=== PATIENT | female | born 1975 | race Caucasian/White ===

== ENCOUNTER 2016-09-06 14:13 | Emergency (ER) | payer OTHER ==
[~2016-09-06] VITALS: Ht 180.3 cm; Wt 56.8 kg
[2016-09-06 14:13] VITALS: BP 135/86; PULSE 69; RESP 14; O2SAT 97
[~2016-09-06 14:13] MED LIST: ALBU8.5H2 INHALATION; LEVO75TA4 PO; MS15TCR PO; ONDA4TAB6 PO; OXYB5TAB10 PO; OXYC-474 PO; OXYC1TAB24 PO; PROC25SU30 RC; VITAMINS; marijuana
[2016-09-06 14:37] LABS: BASOPHILS % (AUTO) 0.7 % (0-3); EOSINOPHILS % (AUTO) 1.2 % (0-5); MONOCYTES % (AUTO) 10.3 % (4-12); Mean Corpuscular Hemoglobin 30.3 pg (27.0-35.0); Mean Corpuscular Volume 90.6 fL (81-100); NEUTROPHILS % (AUTO) 42.5 % (40-74); Platelet Count 315 bil/L (150-400)
--- NOTE | 2016-09-06 15:07 | DRSVH ---
PROCEDURE: X-RAY CHEST, TWO VIEWS ([id number]) INDICATIONS: cough TECHNIQUE: 2 views of the chest were acquired. COMPARISON: [facility], CR, XR CHEST 2VW, 11/01/2015, 7:49. FINDINGS: Surgical changes and devices: None. Lungs and pleura: No pleural effusions or pneumothorax. Lungs are clear. Mediastinum: Mediastinal contours are normal. Heart size is normal. Bones and chest wall: No suspicious bony abnormalities. Soft tissues appear unremarkable. IMPRESSION: Relatively large lung volumes, previously the case, no source of cough is seen. Dictated by: Pedro Bills M.D. on 09/06/2016 at 15:05 Approved by: Pedro Bills M.D. on 09/06/2016 at 15:05
[2016-09-06 15:13] LABS: TROPONIN T < 0.010 ug/L (0.0-0.011)
[2016-09-06] MEDS ORDERED: 0.9% Sodium Chloride 1,000 ML IV ONE (15:31)
--- NOTE | 2016-09-06 15:31 | ED.REPORT ---
HPI-URI / Cough / Cold Date of Service Sep 06, 2016 ED Provider: Terell Flores PA-C Ludy is a 41-year-old female with a history of Marfan syndrome who presents with a chief complaint of cough. Patient previous previously seen at the urgent care and directed to the ED. She states is approximately 2 week history of cough productive of foamy sputum. She states that she has paroxysms of coughing that resulted in syncope which is happened 5 times since yesterday. Complains of rib pain which is aggravated by coughing, fever, fatigue, myalgia. She also complains of nausea and vomiting, approximately 3 times per day, over the last week. Nursing Notes Stated Complaint: SYNCOPAL EPISODES X5 Chief Complaint: Respiratory Complaints Nursing Notes Reviewed: Yes Allergies: Coded Allergies: codeine (Verified Allergy, Severe, Anaphylaxis, 05/08/16) ibuprofen (Verified Allergy, Severe, ANAPHYLAXIS, 02/11/16) nitrofurantoin (Verified Allergy, Severe, 02/11/16) Uncoded Allergies: NSAID (Allergy, Severe, 05/12/15) Scheduled ([marijuana]) DAILY Benzonatate (Benzonatate) 100 Mg Capsule 100 MG PO TID Levothyroxine (Levothyroxine) 75 Mcg Tablet 75 MCG PO DAILY Morphine Sulfate ER (MS Contin) 15 Mg Tablet.er 15 MG PO BID Oxybutynin Chloride (Oxybutynin Chloride) 5 Mg Tablet 5 MG PO TID Prednisone (PredniSONE) 20 Mg Tablet 40 MG PO DAILY Scheduled PRN Albuterol HFA (Proair HFA) 8.5 Gm Hfa.aer.ad 2 PUFFS INHALATION Q4H PRN PRN For Wheezing Albuterol Sulfate (Ventolin HFA Inhaler) 200 Puff/18 Gm Inhaler 1 PUFF INH Q4 PRN PRN For Wheezing Ondansetron (Zofran) 4 Mg Tablet 4 MG PO Q4H PRN PRN For Nausea Oxycodone (Roxicodone) 5 Mg Tablet 5 MG PO q6hr PRN PRN For Pain Prochlorperazine Maleate (Compazine Suppository) 25 Mg Supp.rect 25 MG RC Q8 PRN PRN For Nausea/Vomiting oxyCODONE-Acetaminophen 5-325 mg (oxyCODONE-Acetaminophen 5-325 mg) 1 Each Tablet 1-2 TAB PO Q6H PRN PRN For Pain Miscellaneous Medications ([Vitamins]) General Time Seen by MD: 15:15 Chief Complaint Cough, productive... Past Medical History Past Medical History Marfan syndrome Heart murmur MRSA Polycystic kidney disease and recurrent nephritis (from previous sepsis) Kidney stones Left knee joint infection Ovarian cancer Shingles Hypothyroidism gastric ulcer Past Surgical History Bone graft - multiple surgeries for Marfan's syndrome left sided chest port Thyroidectomy Hysterectomy Right oophorectomy Renal stone surg january 2016 Family History Noncontributory Smoking History Current Every Day Smoker Social History Drug Use: THC Other Social History: Good social support, , Local resident Ambulatory Status Independent Review of Systems General: Admits fever, chills, malaise. HEENT: Denies congestion, headache, sore throat. Respiratory: Admits dyspnea, cough, shortness of breath, wheezing. Cardiovascular: Denies chest pain, palpitations. Gastrointestinal: Admits vomiting, denies diarrhea, abdominal pain. Genitourinary: Denies frequency, urgency, dysuria, hematuria. Otherwise as noted in HPI. Physical Exam General: L appearing, well developed, very thin, no acute distress. Head: Atraumatic, normocephalic. Eyes: No scleral icterus or injection. No discharge. Vision grossly intact. ENT: Voice clear, hearing grossly intact. Respiratory: Regular rate and rhythm. Breath scattered rhonchi and wheezes bilaterally. Cardiovascular: Regular rate and rhythm, without murmur, gallop or rub. No pedal edema. Gastrointestinal: Abdomen flat and non-tender without guarding or rebound. Bowel sounds normoactive. Skin: Warm and dry. Neurological: Grossly nonfocal. Negative pronator drift Cranial nerves: Vision grossly intact, PERRL, EOMI. Facial motion symmetrical, sensation to light touch over forehead, maxilla and mandible present and equal B /L. Voice clear and fluent, no drooling/pooling of saliva, uvula rises midline. Psychological: Alert and oriented. Speech appropriate, linear and logical. Behavior appropriate. Initial Vital Signs Vital Signs (First) Date Time Temp Pulse Resp B/P Pulse Ox O2 Delivery O2 Flow Rate FiO2 09/06/16 14:13 36.9 69 14 135/86 97 Room Air Initial VS: Reviewed, Vital signs normal Interpretation & Diagnostics Interpretation & Diagnostics: Bilateral blood pressures within acceptable limits Orthostatic vital signs within acceptable limits. Lab Results Interpretation Result Diagram: 09/06/16 1420 09/06/16 1420 Test 09/06/16 14:20 09/06/16 16:35 White Blood Count 5.9th/mm3 (3.8-10.1) Red Blood Count 4.45mil/mm3 (3.90-5.20) Hemoglobin 13.5g/dL (12.0-15.6) Hematocrit 40.3% (35.0-46.0) Mean Corpuscular Volume 90.6fL (81-100) Mean Corpuscular Hemoglobin 30.3pg (27.0-35.0) Mean Corpuscular Hemoglobin Concent 33.5% (32.0-37.0) Red Cell Distribution Width 13.0% (12.3-15.4) Platelet Count 315bil/L (150-400) Neutrophils (%) (Auto) 42.5% (40-74) Lymphocytes (%) (Auto) 45.1% (14-46) Monocytes (%) (Auto) 10.3% (4-12) Eosinophils (%) (Auto) 1.2% (0-5) Basophils (%) (Auto) 0.7% (0-3) Sodium Level 134mEq/L (134-144) Potassium Level 3.9mEq/L (3.5-5.2) Chloride Level 95mEq/L (97-108) Carbon Dioxide Level 26mmol/L (18-29) Blood Urea Nitrogen 7mg/dL (6-24) Creatinine 0.60mg/dL (0.57-1.00) Estimat Glomerular Filtration Rate 156mL/min (>59) Glucose Level 98mg/dL (60-99) Calcium Level 9.4mg/dL (8.5-10.1) Magnesium Level 2.0mg/dL (1.6-2.6) Total Bilirubin 0.4mg/dL (0.0-1.2) Aspartate Amino Transf (AST/SGOT) 17U/L (0-50) Alanine Aminotransferase (ALT/SGPT) 7U/L (0-32) Alkaline Phosphatase 68U/L (25-150) Troponin T < 0.010ug/L (0.0-0.011) Total Protein 7.6g/dL (6.4-8.4) Albumin 4.5g/dL (3.4-5.0) Hold Griffin Top Tube Received (Received) Hold Urine Received (Received) ECG Interpretation Interpreted by: ED physician Normal ECG Interpretation: Normal rate, Normal sinus rhythm, No acute ischemic changes, Normal QRS, Normal axis, Normal intervals Re-Eval/Medical Decision Med Decision/Clinical Course Med Decision/Clinical Course: Discussed case with Dr. Reardon, normal EKG, suggest breathing treatment, albuterol for home, pain medication, Perles, bilateral DP, prednisone In brief this is a 41-year-old female with a history of Marfan syndrome presents with a chief complaint of a cough productive of foamy sputum over the last approximately 2 weeks. In the last day she has developed paroxysms of coughing that cause her to syncopize. She also complains of chest pain that is "like pleurisy." Referred from urgent care to concern that the sigmoid episodes may be related to her Marfan syndrome. Chest x-ray shows slight hyperinflation but normal mediastinum and no consolidation. EKG is normal sinus rhythm without unusual waveforms rhythms. Labs are within acceptable limits. Physical exam reveals bilateral wheezes and rhonchi. Cough is most likely a viral upper respiratory infection versus a pneumonia. Simple episodes are most likely caused by a vasovagal response coughing as opposed to CVA or aortic dissection. Patient responded well to breathing treatment, 1 L normal saline and a first dose of prednisone. He feels a little be discharged home. Provided prescription for nausea medication, albuterol MDI, prednisone, advised primary care follow-up and gave return precautions Re-Evaluation/Progress : Time of Eval: 17:27 Patient Status: Condition improved Re-Evaluation/Progress Note: Patient feels improved following DuoNeb and albuterol treatment. Lungs are clear to auscultation bilaterally. Plan to test orthostatic vital signs following completion of normal saline and discharged with albuterol inhaler, Tessalon [place] Discharge & Departure Impression: Primary Impression: Cough Disposition: Home Discharge Condition All VS Reviewed: Yes Condition: Stable Additional Instructions: Evaluation for cough in the emergency department today. Chest x-ray revealed no pneumonia or potential aneurysm related to your Marfan syndrome. EKG and labs were normal. Loss of consciousness is most likely caused by a vasovagal response to excessive coughing. Because there is no pneumonia to treat the treatment is largely symptomatic. I have written a prescription for steroids to be taken for the next 4 days. I will also write a prescription for an albuterol inhaler to help with wheezing and Tessalon Perles to help with cough. Since you are allergic to ibuprofen, treat the pain at 1000 mg of acetaminophen (Tylenol) every 6 hours. Follow up with your primary care provider if your symptoms are not resolving in a few days. Return to emergency room for any new or worsening symptoms including high fever, repeated vomiting, difficulty breathing, stroke symptoms. Referrals: [facility] ([facility] EDSupervising Provider for APC: Waqas Reardon MD, Seth PA-C Sep 06, 2016 15:31
[2016-09-06] MEDS ORDERED: Ondansetron 2 mg/mL 2 mL Inj IVPUSH ONE (15:35)
[2016-09-06] MEDS ORDERED: Albuterol-Ipratropium 3 mL Inhalation Solution NEB ONE (16:20)
[2016-09-06] MEDS ORDERED: Albuterol 2.5 mg/3 mL Inhalation Solution NEB ONE (16:20)
[2016-09-06 16:31] VITALS: BP_SYST 132; BP_SYST 134; BP_DIAS 82; BP_DIAS 93; PULSE 63; RESP 12; O2SAT 98
[2016-09-06] MEDS ORDERED: predniSONE 20 mg Tablet PO ONE (16:35)
[2016-09-06 17:36] VITALS: PULSE 60; RESP 16; O2SAT 97
[2016-09-06 17:53] VITALS: BP 104/66; PULSE 76; RESP 15; O2SAT 93
[2016-09-06 17:55] VITALS: BP 133/82; PULSE 75; RESP 14; O2SAT 95
[2016-09-06] MEDS ORDERED: BENZ100C8 PO (18:32)
[2016-09-06] MEDS ORDERED: PRE20 PO (18:32)
[2016-09-06] MEDS ORDERED: ALBU18HF INH (18:32)
== END 2016-09-06 18:38 | disposition home or self-care (01) ==
LOC: SED 14:13
DX: R05 Cough (principal); R55 Syncope and collapse; R11.2 Nausea with vomiting, unspecified; E03.9 Hypothyroidism, unspecified; Z85.43 Personal history of malignant neoplasm of ovary; F17.200 Nicotine dependence, unspecified, uncomplicated; Z88.1 Allergy status to other antibiotic agents; Z88.5 Allergy status to narcotic agent; Z88.6 Allergy status to analgesic agent
CPT/HCPCS: 36415; 71020; 80053; 81025; 83735; 84484; 85025; 93005; 96361; 96374; 96375; 96376; 99285; G0463; J2270; J2405; J7030; J7613; J7620

== ENCOUNTER 2017-01-02 10:52 | Emergency (ER) | payer OTHER ==
[~2017-01-02] VITALS: Ht 180.3 cm; Wt 60.0 kg
[~2017-01-02 10:52] MED LIST changes: +ALBU18HF INH; +BENZ100C8 PO; +PRE20 PO
[2017-01-02 11:09] VITALS: BP 120/80; PULSE 74; RESP 16; O2SAT 98
== END 2017-01-02 12:43 | disposition left against medical advice (07) ==
LOC: SED 10:52
DX: Z53.21 Procedure and treatment not carried out due to patient leaving prior to being seen by health care provider (principal)

== ENCOUNTER 2017-01-02 14:48 | Emergency (ER) | payer OTHER ==
[~2017-01-02] VITALS: Ht 180.3 cm; Wt 60.0 kg
[2017-01-02 15:05] VITALS: BP 120/80; PULSE 74; RESP 16; O2SAT 98
--- NOTE | 2017-01-02 16:19 | DRSVH ---
PROCEDURE: CT BRAIN WITHOUT CONTRAST ([id number]) INDICATIONS: HEADACHE/CONCERN FOR ANEURYSM TECHNIQUE: Noncontrast 4.5 mm thick angled axial sections acquired from the foramen magnum to the vertex, with c oronal reformats. COMPARISON: None. FINDINGS: Image quality: Excellent. CSF spaces: Basal cisterns are patent. No extra-axial fluid collections. Ventricles are normal in size and shape. Brain: No midline shift. No intracranial masses or hemorrhage. Wheat-white matter interface is norm al. Skull and face: Calvarium and visualized facial bones are intact, without suspicious lesions. Sinuses: Visualized sinuses and mastoids are clear. IMPRESSION: No acute intracranial abnormality. Dictated by: Sheila Keene M.D. on 01/02/2017 at 16:17 Approved by: Sheila Keene M.D. on 01/02/2017 at 16:18
--- NOTE | 2017-01-02 18:07 | ED.REPORT ---
HPI-Headache Date of Service January 02, 2017 ED Provider: Barry Finch DO A 41 year old female with a medical history including Marfan syndrome, polycystic kidney disease, and hypothyroidism presents to the ED with a worsening intermittent headache onset "weeks ago." The headache lasts for one second at a time and is described as severe and "blinding." The patient also reports neck stiffness. She denies other symptoms. The patient was triaged in the ED earlier today, then went to an appointment with her PCP who sent her back to the ED due to an "abnormal neurologic exam." She has had similar symptoms in the past. Nursing Notes Stated Complaint: HEADACHE Chief Complaint: Neuro Symptoms/ Deficits Nursing Notes Reviewed: Yes Allergies: Coded Allergies: codeine (Verified Allergy, Severe, Anaphylaxis, 05/08/16) ibuprofen (Verified Allergy, Severe, ANAPHYLAXIS, 02/11/16) nitrofurantoin (Verified Allergy, Severe, 02/11/16) Uncoded Allergies: NSAID (Allergy, Severe, 05/12/15) Scheduled ([marijuana]) DAILY Benzonatate (Benzonatate) 100 Mg Capsule 100 MG PO TID Levothyroxine (Levothyroxine) 75 Mcg Tablet 75 MCG PO DAILY Morphine Sulfate ER (MS Contin) 15 Mg Tablet.er 15 MG PO BID Oxybutynin Chloride (Oxybutynin Chloride) 5 Mg Tablet 5 MG PO TID Prednisone (PredniSONE) 20 Mg Tablet 40 MG PO DAILY Scheduled PRN Albuterol HFA (Proair HFA) 8.5 Gm Hfa.aer.ad 2 PUFFS INHALATION Q4H PRN PRN For Wheezing Albuterol Sulfate (Ventolin HFA Inhaler) 200 Puff/18 Gm Inhaler 1 PUFF INH Q4 PRN PRN For Wheezing Ondansetron (Zofran) 4 Mg Tablet 4 MG PO Q4H PRN PRN For Nausea Oxycodone (Roxicodone) 5 Mg Tablet 5 MG PO q6hr PRN PRN For Pain Prochlorperazine Maleate (Compazine Suppository) 25 Mg Supp.rect 25 MG RC Q8 PRN PRN For Nausea/Vomiting oxyCODONE-Acetaminophen 5-325 mg (oxyCODONE-Acetaminophen 5-325 mg) 1 Each Tablet 1-2 TAB PO Q6H PRN PRN For Pain Miscellaneous Medications ([Vitamins]) General Time Seen by MD: 18:05 Chief Complaint Headache Hx Obtained From: Patient Arrived By: Walk-in Sudden in Onset?: Yes Onset Occurred: More than a week ago... Symptom Duration: Intermittent Location: : Generalized Quality: Painful ("Blinding") Severity: Current: Moderate Severity: Maximum: Severe Pertinent Negative: Relieved by nothing Recent Healthcare: Recent doctor visit Similar Sx Previous: Yes Past Medical History Past Medical History Marfan syndrome Heart murmur MRSA Polycystic kidney disease and recurrent nephritis (from previous sepsis) Kidney stones Left knee joint infection Ovarian cancer Shingles Hypothyroidism Gastric ulcer Past Surgical History Bone graft - multiple surgeries for Marfan's syndrome left sided chest port Thyroidectomy Hysterectomy Right oophorectomy Renal stone surg january 2016 Family History Noncontributory Smoking History Current Every Day Smoker Social History Drug Use: THC Other Social History: Good social support, , Local resident Ambulatory Status Independent Review of Systems Review of Systems Note: + Neck stiffness Constitutional: Denies: Fever GI: Denies: Diarrhea, Vomiting Neurologic: Reports: Headache Complete sys rev & neg: except as marked. Respiratory: Denies: Non-productive cough, Shortness of breath Physical Exam Initial Vital Signs Vital Signs (First) Date Time Temp Pulse Resp B/P Pulse Ox O2 Delivery O2 Flow Rate FiO2 01/02/17 15:05 36.2 74 16 120/80 98 Room Air Initial VS: Reviewed Respiratory: Breath sounds normal, Clear to auscultation, No respiratory distress Cardiovascular: Regular rate & rhythm, Heart sounds normal Skin: Warm, Dry, No cyanosis Psychiatric: Mood/affect normal, Behavior normal, Normal thought content General/Constitutional: Awake, Alert Head / Eyes: Atraumatic, Normocephalic, EOMI Pupils: Positive: Anisocoria (Right 5mm, Left 4mm) Neck: Supple, Full range of motion Neurologic: Oriented X3, Speech NL, No motor deficits, No sensory deficits Interpretation & Diagnostics CT BRAIN ANGIO W/ and W/O IV CONTRAST: IMPRESSION: 1. No acute intracranial process. 2. No areas of hemodynamically significant stenosis, vascular occlusion or aneurysmal dilation within the anterior circulation. 3. No areas of hemodynamically significant stenosis, vascular occlusion or aneurysmal dilation within the posterior circulation. Dictated by: Stormy Lou M.D. on 01/02/2017 at 20:37 Lab Results Interpretation Result Diagram: 01/02/17 1835 01/02/17 1835 Test 01/02/17 18:35 01/02/17 21:52 White Blood Count 6.0th/mm3 (3.8-10.1) Red Blood Count 4.10mil/mm3 (3.90-5.20) Hemoglobin 12.4g/dL (12.0-15.6) Hematocrit 37.7% (35.0-46.0) Mean Corpuscular Volume 92.0fL (81-100) Mean Corpuscular Hemoglobin 30.2pg (27.0-35.0) Mean Corpuscular Hemoglobin Concent 32.9% (32.0-37.0) Red Cell Distribution Width 13.1% (12.3-15.4) Platelet Count 316bil/L (150-400) Neutrophils (%) (Auto) 50.7% (40-74) Lymphocytes (%) (Auto) 39.2% (14-46) Monocytes (%) (Auto) 8.4% (4-12) Eosinophils (%) (Auto) 0.8% (0-5) Basophils (%) (Auto) 0.7% (0-3) Sodium Level 140mEq/L (134-144) Potassium Level 3.5mEq/L (3.5-5.2) Chloride Level 100mEq/L (97-108) Carbon Dioxide Level 25mmol/L (18-29) Blood Urea Nitrogen 7mg/dL (6-24) Creatinine 0.65mg/dL (0.57-1.00) Estimat Glomerular Filtration Rate 143mL/min (>59) Glucose Level 117mg/dL (60-99) Calcium Level 9.6mg/dL (8.5-10.1) Total Bilirubin 0.6mg/dL (0.0-1.2) Aspartate Amino Transf (AST/SGOT) 15U/L (0-50) Alanine Aminotransferase (ALT/SGPT) 7U/L (0-32) Alkaline Phosphatase 66U/L (25-150) Total Protein 7.3g/dL (6.4-8.4) Albumin 4.6g/dL (3.4-5.0) Hold Griffin Top Tube Received (Received) CSF Appearance Clear (CLEAR) CSF Color Colorless (COLORLESS) CSF WBC 0/mm3 (0-5) CSF RBC 0/mm3 CSF Mononuclear WBCs % CSF Polynuclear WBCs % CSF Other Cells CSF Glucose 65mg/dL (45-90) CSF Total Protein 30mg/dL (15-45) CT Head Interpretation IMPRESSION: No acute intracranial abnormality. Dictated by: Sheila Keene M.D. on 01/02/2017 at 16:17 Study: Head CT no contrast Interpretation / Wet Read by: Interpret - Radiologist Procedures Lumbar Puncture Time: 21:22 Procedure Performed by: ED physician Consent / Setup / Site Prep: Informed consent provided, Consent from patient , Time-out performed, Hand hygiene observed, Stand sterile technique, Sterile drapes applied, Patient left lateral Skin Preparation Agent: Betadine Local Anesthesia: Lidocaine 1% Procedural Sedation/Analgesia: Analgesia: Fentanyl LP Needle Gauge: 22 Inserted Needle at: L3 L4 Post-Procedure / Complications: Dressing applied, No complications, Tolerated procedure well, Patient stable Re-Eval/Medical Decision Re-Evaluation/Progress #1: Time of Eval: 20:49 )( Patient Status: Condition improved Re-Evaluation/Progress Note: Patient's pain has improved with medication. Discussed with patient CT results and plan for LP. She agrees with plan for care and all questions were addressed. Re-Evaluation/Progress #2: Time of Eval: 21:22 )( Patient Status: Condition improved Re-Evaluation/Progress Note: LP performed. Re-Evaluation/Progress #3: Time of Eval: 22:40 )( Patient Status: Condition improved Re-Evaluation/Progress Note: Discussed with patient CT, lab, and LP results, diagnosis, and plan for discharge. Follow-up and return to the ER instructions given. Patient agrees with plan for care and all questions were addressed. Counseled Regarding: Diagnosis, Lab results, Need for follow-up, When/why to return to ED Discharge & Departure Shift Change Sign-Out Response to Therapy: Improved Impression: Primary Impression: Headache Headache type: unspecified Headache chronicity pattern: acute headache Intractability: not intractable Qualified Code: R51 - Headache Disposition: Home Discharge Condition All VS Reviewed: Yes Condition: Improved Patient Instructions: Acute Headache (GEN) Additional Instructions: Thank you for entrusting us with your care. Your exam today was reassuring. Your head CT and lumbar puncture were normal. Your lab results were unremarkable. Please take Imitrex one every eight hours with Benadryl at the onset of your next headache. 1-2 Percocet every six hours as needed for pain related to the lumbar puncture. Do not drink alcohol, drive, or consume acetaminophen while taking Percocet. Call your primary care provider tomorrow for a follow-up appointment. Return to the ER with any new or worsening symptoms. Referrals: Logan Najera DO (PCP) [facility] Attestation Portions of this note were transcribed by Margarita Lucio. I, Dr. Finch, personally performed the history, physical exam, and medical decision-making; I reviewed and confirmed the accuracy of the information in the transcribed note. Signed by: Melina Kelly, 01/03/2017, 00:55 copies to: Logan Najera Todd P DO January 02, 2017 18:06 MARGARITA LUCIO January 02, 2017 18:13
[2017-01-02 18:45] LABS: BASOPHILS % (AUTO) 0.7 % (0-3); EOSINOPHILS % (AUTO) 0.8 % (0-5); MONOCYTES % (AUTO) 8.4 % (4-12); Mean Corpuscular Hemoglobin 30.2 pg (27.0-35.0); NEUTROPHILS % (AUTO) 50.7 % (40-74); Platelet Count 316 bil/L (150-400)
--- NOTE | 2017-01-02 20:42 | DRSVH ---
PROCEDURE: CT ANGIOGRAPHY OF THE BRAIN WITH AND WITHOUT CONTRAST ([id number]) INDICATIONS: marfans, severe headache, TECHNIQUE: Precontrast 4.5 mm thick angled axial sections acquired from the foramen magnum to the vertex. Afte r the administration of intravenous contrast, 1 mm thick sections acquired through the [place] of [place] is. Postcontrast 4.5 mm thick sections then re-acquired from the foramen magnum to the vertex. 3-di mensional otqpieg-gwhckdotf-zqryczssgi (MIP) and/or volume rendering reformats were acquired of the c entral intracranial vasculature. For radiation dose reduction, the following was used: automated ex posure control, adjustment of mA and/or kV according to patient size. COMPARISON: [facility], CT, CT BRAIN WO CON, 01/02/2017, 15:58. FINDINGS: Image quality: Excellent. The ventricular system and cortical sulci are normal in size and appearance for the patient's stated age. There is no acute intra-or extra axial fluid collection. No acute hemorrhage, mass lesion or mid line shift. Brainstem is unremarkable. Globes are symmetrical. Sinuses are aerated. Osseous structure s are intact. The posterior circulation demonstrates a left vertebral artery dominance. Basilar artery and posterio r cerebral arteries demonstrate no areas of hemodynamically significant stenosis, vascular occlusion or aneurysmal dilation. Posterior communicating arteries are within normal limits. The anterior circulation, including the anterior and middle cerebral arteries, as well as internal ca rotid arteries demonstrates no areas of hemodynamically significant stenosis, vascular occlusion or a neurysmal dilation. IMPRESSION: 1. No acute intracranial process. 2. No areas of hemodynamically significant stenosis, vascular occlusion or aneurysmal dilation within the anterior circulation. 3. No areas of hemodynamically significant stenosis, vascular occlusion or aneurysmal dilation within the posterior circulation. Dictated by: Stormy Lou M.D. on 01/02/2017 at 20:37 Approved by: Stormy Lou M.D. on 01/02/2017 at 20:41
[2017-01-02] MEDS ORDERED: fentaNYL-PF 50 mCg/mL 2 mL Inj IVPUSH ONE (20:50)
[2017-01-02] MEDS ORDERED: HYDROmorphone 0.5 mg/0.5 mL iSecure Syringe IVPUSH ONE (21:45)
[2017-01-02 22:16] LABS: APPEARANCE,CSF CLEAR (CLEAR); COLOR,CSF COLORLESS (COLORLESS); WHITE BLOOD CELL,CSF 0 /mm3 (0-5)
[2017-01-02] MEDS ORDERED: _oxyCODONE/APAP 5-325 mg Tablet PO PRN (22:55)
[2017-01-02 23:01] VITALS: BP 96/65; PULSE 72; O2SAT 98
== END 2017-01-02 23:29 | disposition home or self-care (01) ==
LOC: SED 14:48
DX: R51 Headache (principal); M25.60 Stiffness of unspecified joint, not elsewhere classified; Q87.40 Marfan syndrome, unspecified; Q61.3 Polycystic kidney, unspecified; E03.9 Hypothyroidism, unspecified; F17.200 Nicotine dependence, unspecified, uncomplicated; Z87.442 Personal history of urinary calculi; Z88.5 Allergy status to narcotic agent; Z88.6 Allergy status to analgesic agent; Z88.1 Allergy status to other antibiotic agents
CPT/HCPCS: 36415; 62270; 70450; 70496; 80053; 82945; 84155; 85025; 87070; 87205; 89051; 96374; 96375; 99285; J1170; J1200; J2060; J3010; Q9967

== ENCOUNTER 2017-01-04 12:58 | Emergency (ER) | payer OTHER ==
[~2017-01-04] VITALS: Ht 180.3 cm; Wt 59.1 kg
[2017-01-04] MEDS ORDERED: fentaNYL-PF 50 mCg/mL 2 mL Inj ONE (12:59)
[2017-01-04 13:44] VITALS: BP 123/76; PULSE 70; RESP 16; O2SAT 99
[2017-01-04] MEDS ORDERED: Ondansetron 8 mg ODT Tablet ONE (15:01)
[2017-01-04] MEDS ORDERED: 0.9% Sodium Chloride 1,000 ML IV ONE (16:08)
[2017-01-04] MEDS ORDERED: Acetaminophen IV 1,000 MG in IV Premix 1 EACH IV ONE (16:10)
[2017-01-04] MEDS ORDERED: MetoCLOpramide 5 mg/mL 2 mL Inj IVPUSH ONE (16:10)
--- NOTE | 2017-01-04 16:16 | ED.REPORT ---
HPI-Headache Date of Service January 04, 2017 ED Provider: Terell Flores PA-C Ludy is a 41-year-old female with a history of Marfan syndrome presented with a chief complaint of headache. Patient reports a several week history of brief sudden headaches lasting 1-2 minutes associated with vision changes such as double vision. She was seen in this department 2 days ago and evaluated with CT and spinal tap, which were both reassuring. Patient states that her headache has changed since then. The headache is now global and constant, but aggravated by standing up and moving around. Associated with nausea, dizziness , hearing changes "like I am underwater." Denies fever, chills. Nursing Notes Stated Complaint: BAD HEADACHE POST SPINAL TAP Chief Complaint: Headache Nursing Notes Reviewed: Yes Allergies: Coded Allergies: codeine (Verified Allergy, Severe, Anaphylaxis, 01/04/17) ibuprofen (Verified Allergy, Severe, ANAPHYLAXIS, 01/04/17) nitrofurantoin (Verified Allergy, Severe, 01/04/17) Uncoded Allergies: NSAID (Allergy, Severe, 05/12/15) Scheduled ([marijuana]) DAILY Benzonatate (Benzonatate) 100 Mg Capsule 100 MG PO TID Levothyroxine (Levothyroxine) 75 Mcg Tablet 75 MCG PO DAILY Morphine Sulfate ER (MS Contin) 15 Mg Tablet.er 15 MG PO BID Oxybutynin Chloride (Oxybutynin Chloride) 5 Mg Tablet 5 MG PO TID Prednisone (PredniSONE) 20 Mg Tablet 40 MG PO DAILY Scheduled PRN Albuterol HFA (Proair HFA) 8.5 Gm Hfa.aer.ad 2 PUFFS INHALATION Q4H PRN PRN For Wheezing Albuterol Sulfate (Ventolin HFA Inhaler) 200 Puff/18 Gm Inhaler 1 PUFF INH Q4 PRN PRN For Wheezing Hydrocodone-Acetaminophen 5-325 mg (Hydrocodone-Acetaminophen 5-325 mg) 1 Each Tablet 1 TABLET PO Q4H PRN PRN For Pain Ondansetron (Zofran) 4 Mg Tablet 4 MG PO Q4H PRN PRN For Nausea Oxycodone (Roxicodone) 5 Mg Tablet 5 MG PO q6hr PRN PRN For Pain Prochlorperazine Maleate (Compazine Suppository) 25 Mg Supp.rect 25 MG RC Q8 PRN PRN For Nausea/Vomiting oxyCODONE-Acetaminophen 5-325 mg (oxyCODONE-Acetaminophen 5-325 mg) 1 Each Tablet 1-2 TAB PO Q6H PRN PRN For Pain Miscellaneous Medications ([Vitamins]) General Time Seen by MD: 15:49 Chief Complaint Headache Sudden in Onset?: No Past Medical History Past Medical History Marfan syndrome Heart murmur MRSA Polycystic kidney disease and recurrent nephritis (from previous sepsis) Kidney stones Left knee joint infection Ovarian cancer Shingles Hypothyroidism Gastric ulcer Past Surgical History Bone graft - multiple surgeries for Marfan's syndrome left sided chest port Thyroidectomy Hysterectomy Right oophorectomy Renal stone surg january 2016 Family History Noncontributory Smoking History Current Every Day Smoker Social History Drug Use: THC Other Social History: Good social support, , Local resident Ambulatory Status Independent Review of Systems Review of Systems Note: Negative unless stated otherwise in history of present illness Physical Exam General: Well appearing, well developed, well nourished, moderate distress. Lying on the gurney in a darkened room. Head: Atraumatic, normocephalic. Eyes: No scleral icterus or injection. No discharge. Vision grossly intact. ENT: Voice clear, hearing grossly intact. Respiratory: Regular rate and rhythm. Breath sounds present, clear to auscultation and equal bilaterally. No respiratory distress. No increased work of breathing, speaks in complete sentences. Cardiovascular: Regular rate and rhythm, without murmur, gallop or rub. No pedal edema. Gastrointestinal: Abdomen flat and non-tender without guarding or rebound. Bowel sounds normoactive. Skin: Warm and dry. Neurological: Grossly nonfocal. Cranial nerves: Vision grossly intact, PERRL, EOMI. Facial motion symmetrical, sensation to light touch over forehead, maxilla and mandible present and equal B /L. Voice clear and fluent, no drooling/pooling of saliva, uvula rises midline. Psychological: Alert and oriented. Speech appropriate, linear and logical. Behavior appropriate. Initial Vital Signs Vital Signs (First) Date Time Temp Pulse Resp B/P Pulse Ox O2 Delivery O2 Flow Rate FiO2 01/04/17 13:44 37.1 70 16 123/76 99 Room Air Initial VS: Vital signs normal Interpretation & Diagnostics Lab Results Interpretation Test 01/04/17 15:00 Hold Purple Top Tube Received (Received) Hold Blue Top Tube Received (Received) Hold Wyckoff Top Tube Received (Received) Hold Griffin Top Tube Received (Received) Re-Eval/Medical Decision Med Decision/Clinical Course 41-year-old female presenting with chief complaint of headache. Seen in this department 2 days ago for headaches characterized by sudden onset and short duration. CT and lumbar puncture reassuring and patient is diagnosed with migraine. Patient returns complaining of a constant global headache aggravated by standing up and around. Ameliorated by lying down. Change in symptoms his happened since performance of the lumbar puncture. Physical examination is benign with a normal neurological examination. Some history of limits is most likely to be a lumbar puncture headache and a little concern for subarachnoid hemorrhage, infection or mass. Seen by Dr.Bao Ramos of anesthesia performed a blood patch. Patient responded well and feels ready for discharge. She is discharged to home after approximately 2 hours with small amount of hydrocodone/acetaminophen with precautions, instructions for primary care follow-up, emergency return precautions. Patient verbalizes understanding of and consented to plan. Discharge & Departure Impression: Primary Impression: Lumbar puncture headache Disposition: Home Discharge Condition All VS Reviewed: Yes Condition: Stable Additional Instructions: Evaluation for headache in the emergency department included history and physical examination which suggests that this is likely to be a headache caused by the lumbar puncture he received 2 days ago. We consulted with the anesthesiologist, who performed a blood patch, which was successful. I believe you are stable and safe to be discharged home. Take it easy for the next day or so. I will provide a prescription for a small amount of hydrocodone/acetaminophen for pain control. Please do not operate a vehicle drink alcohol or use Tylenol within 4 hours of taking this medication. Follow-up with your primary care provider if your headaches continue. Return to emergency department for new or worsening symptoms including new back pain, neurological changes, loss of bowel/bladder control, numbness between her legs. Referrals: Logan Najera DO (PCP) EDSupervising Provider for APC: Elver Kothari MD copies to: Logan Najera Seth PA-C January 04, 2017 16:15
--- NOTE | 2017-01-04 18:05 | PROCED ---
[address] [address] PROCEDURE NOTE PATIENT: HARRIS GALLEGO : 1975 MR#: [id number] ADMIT: 01/04/2017 JOB ID: [id number] DATE OF SERVICE: 01/04/2017 POSTOPERATIVE DIAGNOSIS(ES): PREOPERATIVE DIAGNOSIS(ES): SURGEON: Hao Ramos MD SEDATION: I was asked by the ED physician to come and see this patient secondary to symptoms of what sounded like a post dural puncture headache. Upon reviewing the patient's history of which she had a spinal tap done two days ago to work up headache as well as a CT scan, the results all of which were negative for any concerning pathology, I decided that the most appropriate course of action would be an epidural blood patch. After thoroughly explaining the procedure and the risks and the benefits to the patient, she signed informed consent. Patient was administered IV with 2 mg of midazolam and 100 mcg of fentanyl after which the patient was in a sitting position. Her lumbar spine area was sterilely prepped and draped and 1% lidocaine was used to infiltrate the skin for numbing after which a 17-gauge Tuohy was advanced using loss of resistance technique. Loss of resistance was achieved at approximately 5 cm after which I proceeded to the patient's front and using strict aseptic technique, her right dorsal hand vein was sterilely prepped and using a 20-gauge cutting needle, 20 cc of the patient's own blood was sterilely withdrawn. This blood was injected into the epidural space using aseptic technique. The patient tolerated this injection without any symptoms of radiculopathy. The patient tolerated the procedure very well. After the procedure, the patient noted immediate improvement in the positional nature of her headache. While she still did have a bit of residual headache, it was not as intense as before and it seems like the patient's photophobia had also improved significantly. I advised the patient to lay supine for approximately an hour and that the patient should drink plenty of fluids and also possibly use caffeine if she prefers. Also, the patient was cautioned about signs that should prompt her return to the emergency department. This would include new-onset back pain, new-onset fever, any radicular symptoms which would include loss of urinary or bowel function or any weakness in the lower extremities. The patient understood this. The patient was very satisfied with the procedure and the improvement in her symptoms. I did speak with the ED physician as well and explained the procedure and the signs and symptoms to be concerned about.
[2017-01-04] MEDS ORDERED: HYDR-4003 PO (18:12)
[2017-01-04 18:41] VITALS: BP 118/67; PULSE 68; RESP 16; O2SAT 99
== END 2017-01-04 18:42 | disposition home or self-care (01) ==
LOC: SED 12:58
DX: G97.1 Other reaction to spinal and lumbar puncture (principal); H53.2 Diplopia; R11.0 Nausea; R42 Dizziness and giddiness; H93.90 Unspecified disorder of ear, unspecified ear; E03.9 Hypothyroidism, unspecified; F17.200 Nicotine dependence, unspecified, uncomplicated; Z88.5 Allergy status to narcotic agent; Z88.8 Allergy status to other drugs, medicaments and biological substances
CPT/HCPCS: 62273; 96361; 96374; 99284; J2250; J2765; J3010; J7030

== ENCOUNTER 2017-03-25 05:13 | Emergency (ER) | payer OTHER ==
[~2017-03-25] VITALS: Ht 180.3 cm; Wt 57.3 kg
[~2017-03-25 05:13] MED LIST changes: +HYDR-4003 PO
[2017-03-25 05:17] VITALS: BP 133/85; PULSE 68; RESP 20; O2SAT 98
[2017-03-25 06:02] LABS: APPEARANCE,URINE CLEAR (CLEAR,HAZY); COLOR,URINE YELLOW (YELLOW)
[2017-03-25 06:03] LABS: OCCULT BLOOD,URINE LARGE (NEGATIVE); UROBILINOGEN,URINE NORMAL (NORMAL)
--- NOTE | 2017-03-25 06:11 | ED.REPORT ---
HPI-Abd Pain F 40 and Over Date of Service Mar 25, 2017 ED Provider: Kandy Carlos MD Patient is a 41 year old female with a hx of Lupus, recurrent kidney infections , cancer, and Marfan's syndrome who presents to the ED complaining of nausea and vomiting that has been chronic over the last few weeks but worsening over the last 2 days. Associated symptoms include decreased appetite, bilateral kidney pain (R>L), weight loss, sweat, diarrhea, dysuria, and hematuria, She denies fever, chills, or any other symptoms. She also complains of chronic dry skin, dry mouth, ankle swelling, hand swelling, and vision problems. She has been seen by Urology and her PCP for her symptoms and is waiting to see nephrology and rheumatology. Her diagnosis of Lupus is recent. She had a urine culture done 2 days ago at the [facility]. Patient has been taking Tylenol and Zofran without relief. She took 2 Percocet yesterday with mild relief. Nursing Notes Stated Complaint: BLOOD IN URINE Chief Complaint: Female Abdominal Pain Nursing Notes Reviewed: Yes Allergies: Coded Allergies: codeine (Verified Allergy, Severe, Anaphylaxis, 03/25/17) ibuprofen (Verified Allergy, Severe, ANAPHYLAXIS, 03/25/17) nitrofurantoin (Verified Allergy, Severe, 03/25/17) Uncoded Allergies: NSAID (Allergy, Severe, 05/12/15) Scheduled ([marijuana]) DAILY Benzonatate (Benzonatate) 100 Mg Capsule 100 MG PO TID Levothyroxine (Levothyroxine) 75 Mcg Tablet 75 MCG PO DAILY Morphine Sulfate ER (MS Contin) 15 Mg Tablet.er 15 MG PO BID Oxybutynin Chloride (Oxybutynin Chloride) 5 Mg Tablet 5 MG PO TID Prednisone (PredniSONE) 20 Mg Tablet 40 MG PO DAILY Scheduled PRN Albuterol HFA (Proair HFA) 8.5 Gm Hfa.aer.ad 2 PUFFS INHALATION Q4H PRN PRN For Wheezing Albuterol Sulfate (Ventolin HFA Inhaler) 200 Puff/18 Gm Inhaler 1 PUFF INH Q4 PRN PRN For Wheezing Hydrocodone-Acetaminophen 5-325 mg (Hydrocodone-Acetaminophen 5-325 mg) 1 Each Tablet 1 TABLET PO Q4H PRN PRN For Pain Ondansetron (Zofran) 4 Mg Tablet 4 MG PO Q4H PRN PRN For Nausea Oxycodone (Roxicodone) 5 Mg Tablet 5 MG PO q6hr PRN PRN For Pain Prochlorperazine Maleate (Compazine Suppository) 25 Mg Supp.rect 25 MG RC Q8 PRN PRN For Nausea/Vomiting oxyCODONE-Acetaminophen 5-325 mg (oxyCODONE-Acetaminophen 5-325 mg) 1 Each Tablet 1-2 TAB PO Q6H PRN PRN For Pain Miscellaneous Medications ([Vitamins]) General Time Seen by MD: 06:12 Chief Complaint Vomiting moderate Hx Obtained From: Patient Arrived By: Walk-in Sudden in Onset?: Yes Onset Occurred: 2 days ago Symptom Duration: Since onset Recent Healthcare: Recent doctor visit, Recent testing, Prior workup Similar Sx Previous: Yes Risk Factors )( AAA Risk Stratification Marfan's syndrome SmokingNo Hypertension Risk factors reviewed Past Medical History Past Medical History Marfan syndrome Heart murmur MRSA Polycystic kidney disease- however from CT 2014 "Both kidneys are normal in size, without hydronephrosis. A 1 mm diameter nonobstructing calculus is present the upper pole of the right kidney. No perinephric fat stranding. There is normal bilateral renal enhancement. Renal calyces appear normal in morphology when filled with contrast. Opacified portions of both ureters demonstrate normal caliber. Bladder wall thickness is normal. No calcified bladder stones." Kidney stones Left knee joint infection Ovarian cancer Shingles Hypothyroidism Gastric ulcer Lupus Cervical and ovarian cancer PID endometreosis Anxiety Past Surgical History Bone graft - multiple surgeries for Marfan's syndrome left sided chest port Thyroidectomy Hysterectomy Bilat oophorectomy Renal stone surg january 2016 Family History Noncontributory Smoking History Current Every Day Smoker Social History Drug Use: THC Other Social History: Good social support, , Local resident Ambulatory Status Independent Review of Systems +decreased appetite, kidney pain Markedly positive rheumatologic review of systems Constitutional: Reports: Recent wt loss, Weakness - generalized (night sweats ( 10 years post total hyst/GÓMEZ), Denies: Chills, Fever Respiratory: Denies: Dyspnea on exertion, Pleuritic pain Cardiovascular: Reports: Edema (minor to moderate, intermittenly hands only), Denies: Chest pain GI: Reports: Abdominal pain, Anorexia, Diarrhea, Nausea, Vomiting Female: Reports: Dysuria, Hematuria, Denies: Urinary frequency, Vaginal bleeding - abnl, Vaginal discharge Musculoskeletal: Reports: Joint pain, Myalgia, Denies: Joint swelling Complete sys rev & neg: except as marked. Eyes: Reports: Blurred bilateral (worsening over the last weeks) Ears / Nose / Throat: Reports: Mouth pain (recurrent mouth sores ), Denies: Hearing loss bilateral, Nasal congestion, Sinus problem Hematologic: Denies Adenopathy, Denies Bleeding, Denies Bruising, Denies Petechiae Endocrine: Reports: Cold intolerance, Heat intolerance, Weight loss Skin: Reports Diaphoresis, Denies Rash (including malar erythema) Allergy / Immune: Denies: Hives, Itching Neurologic: Denies: Confusion, Dizziness, Focal weakness, Headache, Problem walking Psychiatric: Reports: Anxiety, Depression, Insomnia, Denies: Change mental status, Confusion, Delusional Physical Exam Vital Signs Vital Signs (First) Date Time Temp Pulse Resp B/P Pulse Ox O2 Delivery O2 Flow Rate FiO2 03/25/17 05:17 36.4 68 20 133/85 98 Room Air Initial VS: Reviewed, Vital signs normal Head / Eyes: Atraumatic, Normocephalic Neck: Full range of motion Neurologic: Alert, Oriented, Nonfocal Psychiatric: Mood/affect normal, Behavior normal, Normal thought content General/Constitutional: Awake, Alert Distress / Hydration: Positive: Distress mild Respiratory / Chest: Breath sounds NL, Breath sounds = bilat, No respiratory distress Cardiovascular: Heart rate NL, Regular rhythm, Heart sounds NL Abdomen: Atraumatic, Soft, Non-tender, No guarding, No rebound No ascites Back: No CVA tenderness Skin: Color NL, Warm, Dry, No swelling No active synovitis no rashes no allopecia Interpretation & Diagnostics Interpretation & Diagnostics: labs from October: + JUAN, AntiNuclear AB titer 10, TSH 5.3 [employer] ab -, Sjogren Ab - UA with blood. No white cells or bacteria. Urine preg neg. Leuks and blood present Lab Results Interpretation Result Diagram: 03/25/17 0645 03/25/17 0645 Test 03/25/17 05:45 03/25/17 06:45 Urine Color Yellow (YELLOW) Urine Appearance Clear (CLEAR,HAZY) Urine pH 6.0 (5.0-8.0) Urine Specific [place] 1.015 (1.003-1.035) Urine Protein Negativemg/dL (NEG,TRACE) Urine Glucose (UA) Negativemg/dL (NEGATIVE) Urine Ketones 15mg/dL (NEGATIVE) Urine Occult Blood Large (NEGATIVE) Urine Nitrite Negative (NEGATIVE) Urine Bilirubin Negative (NEGATIVE) Urine Urobilinogen Normalmg/dL (NORMAL) Urine Leukocyte Esterase Trace (NEGATIVE) Urine RBC >50/hpf (0-2) Urine WBC 0-5/hpf (0-5) Urine Epithelial Cells Occasional/hpf (NONE-MOD) Urine Crystals None seen (NONE SEEN) Urine Bacteria Few/hpf (NONE-FEW) Urine Hyaline Casts None/lpf (NONE) Urine Granular Casts None seen (NONE SEEN) Urine Waxy Casts None seen (NONE SEEN) Urine Red Blood Cell Casts None seen (NONE SEEN) Urine White Blood Cell Casts None seen (NONE SEEN) Urine Mucus None seen (None Seen) Urine Trichomonas None seen (NONE SEEN) Urine Yeast None (NONE SEEN) Urinalysis Comment None Urine Culture Reflexed Indicated White Blood Count 5.0th/mm3 (3.8-10.1) Red Blood Count 4.01mil/mm3 (3.90-5.20) Hemoglobin 12.5g/dL (12.0-15.6) Hematocrit 36.8% (35.0-46.0) Mean Corpuscular Volume 91.8fL (81-100) Mean Corpuscular Hemoglobin 31.2pg (27.0-35.0) Mean Corpuscular Hemoglobin Concent 34.0% (32.0-37.0) Red Cell Distribution Width 12.7% (12.3-15.4) Platelet Count 308bil/L (150-400) Neutrophils (%) (Auto) 50.0% (40-74) Lymphocytes (%) (Auto) 40.4% (14-46) Monocytes (%) (Auto) 8.0% (4-12) Eosinophils (%) (Auto) 1.4% (0-5) Basophils (%) (Auto) 0.2% (0-3) Sodium Level 139mEq/L (134-144) Potassium Level 4.0mEq/L (3.5-5.2) Chloride Level 102mEq/L (97-108) Carbon Dioxide Level 22mmol/L (18-29) Blood Urea Nitrogen 8mg/dL (6-24) Creatinine 0.55mg/dL (0.57-1.00) Estimat Glomerular Filtration Rate 173mL/min (>59) Glucose Level 97mg/dL (60-99) Calcium Level 9.3mg/dL (8.5-10.1) Magnesium Level 2.3mg/dL (1.6-2.6) Total Bilirubin 0.5mg/dL (0.0-1.2) Aspartate Amino Transf (AST/SGOT) 17U/L (0-50) Alanine Aminotransferase (ALT/SGPT) 8U/L (0-32) Alkaline Phosphatase 60U/L (25-150) Total Protein 7.2g/dL (6.4-8.4) Albumin 4.4g/dL (3.4-5.0) Lipase 24U/L (13-60) Hold Griffin Top Tube Received (Received) Lab Results Interpretation: CT KUB 03/03/17: IMPRESSION: 1. No imaging explanation for flank pain. No kidney stones or hydronephrosis. 2. Incidental superior right hepatic lobe 1.5 cm cyst is unchanged. Dictated by: Minh Jacobs M.D. on 03/03/2017 at 10:54 Approved by: iMnh Jacobs M.D. on 03/03/2017 at 11:02 Re-Eval/Medical Decision Med Decision/Clinical Course malaise, wt loss, hematuria, abdominal pain with additional vague sx but + rheumatolic ROS and PCP has suggested rheum consult (not yet facilitated per patient). continues to feel poorly, with abd pain, nausea and vomitting. Has been on optiates before but not currently taking any significant does and wants to avoid them when possible. Did take 2 percoset 2 days ago and experienced signifianct but temporary releife of arthritis pain. Today, louis like help with nausea, general malaise, dehydratoin and abdominal pain. Re-Evaluation/Progress : Time of Eval: 08:48 Re-Evaluation/Progress Note: Rechecked patient who is feeling much better. Patient smokes marijuana every day and puts it in her food. She has a hx of marijuana related emesis. Discussed need to stop THC use for at least 6 mo to see if vomiting resolves. Discussed plan for discharge. Patient understands and agrees with plan. All questions addressed at this time. Counseled Regarding: Diagnosis, Lab results, Need for follow-up, When/why to return to ED Discharge & Departure Primary Impression: Nausea & vomiting Vomiting type: unspecified Vomiting Intractability: unspecified Qualified Code: R11.2 - Nausea with vomiting, unspecified Disposition: Home Discharge Condition All VS Reviewed: Yes Condition: Improved Additional Instructions: Try not using marijuana for at least 6 months to see if it makes a difference in your nausea and vomiting. You can try capsaicin cream on your abdomen to help relieve pain. It will burn. Make sure you wash your hands thoroughly after applying. I've given you some information on Cannabinoid Hyperemesis Syndrome, I don't think this explains everything, but it can't hurt to try. Take Reglan as needed for nausea every 6 hours. This increases how fast food moves through your gut. It may help, again, worth a try. Call your doctor on Monday to check the status of your rheumatology consult. I hope you find some peace and some reasaonable answers to explain your symptoms. Referrals: [facility] (PCP) MELVA DIAZ Attestation Portions of this note were transcribed by Jaren Thrasher. I, Dr. Carlos personally performed the history, physical exam and medical decision-making; I reviewed and confirmed the accuracy of the information in the transcribed note. Signed: Melina Maldonado, 03/25/2017 copies to: MELVA DIAZ DO; [facility] Kandy Carlos MD Mar 25, 2017 06:11 JAREN THRASHER Mar 25, 2017 06:43
[2017-03-25] MEDS ORDERED: 0.9% Sodium Chloride 1,000 ML IV ONE (06:33)
[2017-03-25] MEDS ORDERED: HYDROmorphone 0.5 mg/0.5 mL iSecure Syringe IVPUSH PRN (06:35)
[2017-03-25] MEDS ORDERED: Ondansetron 2 mg/mL 2 mL Inj IVPUSH ONE (06:35)
[2017-03-25 06:57] LABS: BASOPHILS % (AUTO) 0.2 % (0-3); EOSINOPHILS % (AUTO) 1.4 % (0-5); Mean Corpuscular Hemoglobin 31.2 pg (27.0-35.0); Mean Corpuscular Volume 91.8 fL (81-100); Platelet Count 308 bil/L (150-400)
[2017-03-25] MEDS: HYDROmorphone 1 mg/mL Inj IVPUSH PRN ×2 (07:02→07:35)
[2017-03-25 07:18] LABS: Magnesium 2.3 mg/dL (1.6-2.6)
[2017-03-25 09:34] VITALS: BP 124/79; PULSE 61; RESP 20; O2SAT 97
== END 2017-03-25 09:35 | disposition home or self-care (01) ==
LOC: SED 05:13
DX: R11.2 Nausea with vomiting, unspecified (principal); F17.200 Nicotine dependence, unspecified, uncomplicated; Q87.40 Marfan syndrome, unspecified; F12.10 Cannabis abuse, uncomplicated; Z87.39 Personal history of other diseases of the musculoskeletal system and connective tissue; Z87.448 Personal history of other diseases of urinary system; Z85.43 Personal history of malignant neoplasm of ovary; Z85.41 Personal history of malignant neoplasm of cervix uteri; Z90.89 Acquired absence of other organs; Z86.14 Personal history of Methicillin resistant Staphylococcus aureus infection; Z79.51 Long term (current) use of inhaled steroids; Z79.52 Long term (current) use of systemic steroids; Z88.6 Allergy status to analgesic agent; Z88.5 Allergy status to narcotic agent; Z88.8 Allergy status to other drugs, medicaments and biological substances
CPT/HCPCS: 36415; 80053; 81000; 81025; 83690; 83735; 85025; 87086; 96361; 96374; 96375; 96376; 99284; J1170; J2405; J7030

== ENCOUNTER 2017-04-14 17:18 | Emergency (ER) | payer MEDICAID, OTHER ==
[~2017-04-14] VITALS: Ht 180.3 cm; Wt 57.7 kg
[2017-04-14 17:44] VITALS: BP 104/67; PULSE 71; RESP 14; O2SAT 98
[2017-04-14 19:43] LABS: BASOPHILS % (AUTO) 0.2 % (0-3); EOSINOPHILS % (AUTO) 1.1 % (0-5); Mean Corpuscular Hemoglobin 31.3 pg (27.0-35.0); Mean Corpuscular Volume 93.2 fL (81-100); NEUTROPHILS % (AUTO) 46.5 % (40-74); Platelet Count 352 bil/L (150-400)
[2017-04-14 20:04] LABS: Magnesium 1.9 mg/dL (1.6-2.6)
[2017-04-14] MEDS ORDERED: 0.9% Sodium Chloride 1,000 ML IV ONE (20:05)
[2017-04-14] MEDS ORDERED: MetoCLOpramide 5 mg/mL 2 mL Inj IVPUSH ONE (20:05)
[2017-04-14] MEDS ORDERED: HYDROmorphone 0.5 mg/0.5 mL iSecure Syringe IVPUSH PRN (20:05)
--- NOTE | 2017-04-14 20:11 | ED.REPORT ---
HPI-Abd Pain F 40 and Over Date of Service Apr 14, 2017 ED Provider: Terell Flores PA-C Ludy is a 41-year-old female with a history of pyelonephritis, lupus and Marfan syndrome presenting the emergency department with a chief complaint of hematuria. Patient reports a two-month history of gross hematuria associated with bilateral flank pain right greater than left, nausea and vomiting 10 per day, diarrhea, night sweats. Patient reports treatment at home with Zofran twice a day. Admits history of hysterectomy. Denies fever, shaking chills, melena, hematochezia, vaginal bleeding or discharge, chest pain, shortness of breath. She is referred to emergency department by her primary care provider. She has appointments to be seen by nephrology of this month in urology on the of this month. Nursing Notes Stated Complaint: BLOOD IN URINE Chief Complaint: Female Abdominal Pain Nursing Notes Reviewed: Yes Allergies: Coded Allergies: codeine (Verified Allergy, Severe, Anaphylaxis, 03/25/17) ibuprofen (Verified Allergy, Severe, ANAPHYLAXIS, 03/25/17) nitrofurantoin (Verified Allergy, Severe, 03/25/17) Uncoded Allergies: NSAID (Allergy, Severe, 05/12/15) Scheduled ([marijuana]) DAILY Benzonatate (Benzonatate) 100 Mg Capsule 100 MG PO TID Levothyroxine (Levothyroxine) 75 Mcg Tablet 75 MCG PO DAILY Morphine Sulfate ER (MS Contin) 15 Mg Tablet.er 15 MG PO BID Oxybutynin Chloride (Oxybutynin Chloride) 5 Mg Tablet 5 MG PO TID Prednisone (PredniSONE) 20 Mg Tablet 40 MG PO DAILY Scheduled PRN Albuterol HFA (Proair HFA) 8.5 Gm Hfa.aer.ad 2 PUFFS INHALATION Q4H PRN PRN For Wheezing Albuterol Sulfate (Ventolin HFA Inhaler) 200 Puff/18 Gm Inhaler 1 PUFF INH Q4 PRN PRN For Wheezing Hydrocodone-Acetaminophen 5-325 mg (Hydrocodone-Acetaminophen 5-325 mg) 1 Each Tablet 1 TABLET PO Q4H PRN PRN For Pain Metoclopramide (Reglan) 10 Mg Tablet 10 MG PO QID PRN PRN For Nausea Ondansetron (Zofran) 4 Mg Tablet 4 MG PO Q4H PRN PRN For Nausea Oxycodone (Roxicodone) 5 Mg Tablet 5 MG PO q6hr PRN PRN For Pain Prochlorperazine Maleate (Compazine Suppository) 25 Mg Supp.rect 25 MG RC Q8 PRN PRN For Nausea/Vomiting oxyCODONE-Acetaminophen 5-325 mg (oxyCODONE-Acetaminophen 5-325 mg) 1 Each Tablet 1-2 TAB PO Q6H PRN PRN For Pain Miscellaneous Medications ([Vitamins]) General Time Seen by MD: 19:46 Chief Complaint Other (hematuria) Sudden in Onset?: No Past Medical History Past Medical History Marfan syndrome Heart murmur MRSA Polycystic kidney disease- however from CT 2014 "Both kidneys are normal in size, without hydronephrosis. A 1 mm diameter nonobstructing calculus is present the upper pole of the right kidney. No perinephric fat stranding. There is normal bilateral renal enhancement. Renal calyces appear normal in morphology when filled with contrast. Opacified portions of both ureters demonstrate normal caliber. Bladder wall thickness is normal. No calcified bladder stones." Kidney stones Left knee joint infection Ovarian cancer Shingles Hypothyroidism Gastric ulcer Lupus Cervical and ovarian cancer PID endometreosis Anxiety Past Surgical History Bone graft - multiple surgeries for Marfan's syndrome left sided chest port Thyroidectomy Hysterectomy Bilat oophorectomy Renal stone surg january 2016 Family History Noncontributory Smoking History Current Every Day Smoker Social History Drug Use: THC Other Social History: Good social support, , Local resident Ambulatory Status Independent Review of Systems Negative unless stated otherwise in history of present illness Physical Exam General: Well appearing, well developed, well nourished, no acute distress. Head: Atraumatic, normocephalic. Eyes: No scleral icterus or injection. No discharge. Vision grossly intact. ENT: Voice clear, hearing grossly intact. Respiratory: Regular rate and rhythm. Breath sounds present, clear to auscultation and equal bilaterally. No respiratory distress. No increased work of breathing, speaks in complete sentences. Cardiovascular: Regular rate and rhythm, without murmur, gallop or rub. No pedal edema. Gastrointestinal: Abdomen flat and non-tender without guarding or rebound. Bowel sounds normoactive. Back: Normal to inspection, moderate CVA tenderness to palpation. Skin: Warm and dry. Lower extremity: DP and PT pulses are bounding. Neurological: Grossly nonfocal. Psychological: Alert and oriented. Speech appropriate, linear and logical. Behavior appropriate. Vital Signs Vital Signs (First) Date Time Temp Pulse Resp B/P Pulse Ox O2 Delivery O2 Flow Rate FiO2 04/14/17 17:44 36.4 71 14 104/67 98 Room Air Normal Interpretation & Diagnostics Lab Results Interpretation Result Diagram: 04/14/17193904/14/171939 Test 04/14/17 19:40 04/14/17 20:07 White Blood Count 8.1th/mm3 (3.8-10.1) Red Blood Count 4.12mil/mm3 (3.90-5.20) Hemoglobin 12.9g/dL (12.0-15.6) Hematocrit 38.4% (35.0-46.0) Mean Corpuscular Volume 93.2fL (81-100) Mean Corpuscular Hemoglobin 31.3pg (27.0-35.0) Mean Corpuscular Hemoglobin Concent 33.6% (32.0-37.0) Red Cell Distribution Width 12.6% (12.3-15.4) Platelet Count 352bil/L (150-400) Neutrophils (%) (Auto) 46.5% (40-74) Lymphocytes (%) (Auto) 43.1% (14-46) Monocytes (%) (Auto) 9.0% (4-12) Eosinophils (%) (Auto) 1.1% (0-5) Basophils (%) (Auto) 0.2% (0-3) Sodium Level 137mEq/L (134-144) Potassium Level 3.2mEq/L (3.5-5.2) Chloride Level 96mEq/L (97-108) Carbon Dioxide Level 25mmol/L (18-29) Blood Urea Nitrogen 10mg/dL (6-24) Creatinine 0.85mg/dL (0.57-1.00) Estimat Glomerular Filtration Rate 105mL/min (>59) Glucose Level 91mg/dL (60-99) Calcium Level 9.6mg/dL (8.5-10.1) Magnesium Level 1.9mg/dL (1.6-2.6) Total Bilirubin 0.4mg/dL (0.0-1.2) Aspartate Amino Transf (AST/SGOT) 15U/L (0-50) Alanine Aminotransferase (ALT/SGPT) 7U/L (0-32) Alkaline Phosphatase 69U/L (25-150) Total Protein 7.8g/dL (6.4-8.4) Albumin 4.8g/dL (3.4-5.0) Lipase 29U/L (13-60) Hold Griffin Top Tube Received (Received) Urine Color Dark yellow (YELLOW) Urine Appearance Cloudy (CLEAR,HAZY) Urine pH 5.5 (5.0-8.0) Urine Specific [place] 1.025 (1.003-1.035) Urine Protein Tracemg/dL (NEG,TRACE) Urine Glucose (UA) Negativemg/dL (NEGATIVE) Urine Ketones Negativemg/dL (NEGATIVE) Urine Occult Blood Large (NEGATIVE) Urine Nitrite Negative (NEGATIVE) Urine Bilirubin Negative (NEGATIVE) Urine Urobilinogen Normalmg/dL (NORMAL) Urine Leukocyte Esterase Trace (NEGATIVE) Urine RBC 11-50/hpf (0-2) Urine WBC 0-5/hpf (0-5) Urine Epithelial Cells Moderate/hpf (NONE-MOD) Urine Crystals None seen (NONE SEEN) Urine Bacteria None/hpf (NONE-FEW) Urine Hyaline Casts None/lpf (NONE) Urine Granular Casts None seen (NONE SEEN) Urine Waxy Casts None seen (NONE SEEN) Urine Red Blood Cell Casts None seen (NONE SEEN) Urine White Blood Cell Casts None seen (NONE SEEN) Urine Mucus None seen (None Seen) Urine Trichomonas None seen (NONE SEEN) Urine Yeast None (NONE SEEN) Urinalysis Comment None Urine Culture Reflexed Indicated Re-Eval/Medical Decision Med Decision/Clinical Course 41-year-old female with a history of any stones, lupus, Marfan syndrome presents with chief complaint of hematuria 2 month associated with nausea and vomiting. Referred by primary care for IV fluids per patient. Physical examination reveals bilateral CVA tenderness to palpation. Otherwise benign with normal vitals. Urine sample is grossly bloody. This is sent for urinalysis, CBC and CMP are drawn. CT KUB is ordered after consultation with Dr. Alonzo. CBC and CMP are unremarkable, as is KUB. Care is transferred to Dr. Hendricks at shift change. Discharge & Departure Shift Change Sign-Out Patient Care Transferred: Yes (Dr. Hendricks) Discussed Complaint(s): Yes Laboratory Evaluation: Lab evaluation discussed Imaging Studies: Imaging discussed Primary Impression: Hematuria Additional Impressions: Nausea and vomiting Vomiting type: unspecified Vomiting Intractability: non-intractable Qualified Code: R11.2 - Nausea with vomiting, unspecified Bilateral flank pain Disposition: Home Discharge Condition All VS Reviewed: Yes Condition: Stable Patient Instructions: Hematuria (ED) Additional Instructions: Evaluation for hematuria as well as nausea and vomiting emergency department included interview, physical examination, lab work, urinalysis and CT scan all of which are reassuring that this is unlikely to be caused by immediately dangerous condition. We believe you are stable and safe to be discharged home. Follow-up with urology and nephrology as you already have planned. Return to emergency department for any new or worsening symptoms including increasing pain, fever. Referrals: [facility] ([facility]) MELVA DIAZ DO EDSupervising Provider for APC: Octaviano Hendricks MD Attending Statement I assumed care of patient from DIANA Flores. In brief 41-year-old female history of lupus, Marfan's presenting with hematuria. Patient has follow-up with nephrology, rheumatology, urology. Seen for similar one month ago. This has been going on for 2 months. Urine negative for infection. Positive for blood. CT KUB with no kidney stones. Patient felt much better after IV fluids. Patient will follow up with specialist as above. Return precautions given. copies to: MELVA DIAZ Seth PA-C Apr 14, 2017 20:11 Octaviano Hendricks MD Apr 14, 2017 23:40
[2017-04-14 20:40] LABS: APPEARANCE,URINE CLOUDY (CLEAR,HAZY); COLOR,URINE DARK YELLOW (YELLOW); OCCULT BLOOD,URINE LARGE (NEGATIVE); PH,URINE 5.5 (5.0-8.0); UROBILINOGEN,URINE NORMAL (NORMAL)
--- NOTE | 2017-04-14 20:50 | DRSVH ---
PROCEDURE: CT KUB ([id number]) INDICATIONS: 41 year-old female with right flank pain and hematuria, and history of kidney stones. TECHNIQUE: Noncontrast 5 mm thick sections acquired from the diaphragms to the symphysis. 5 mm thick coronal an d sagittal reformats were then performed. For radiation dose reduction, the following was used: aut omated exposure control, adjustment of mA and/or kV according to patient size. COMPARISON: [facility], CT, CT KUB, 03/03/2017, 10:48. [facility], CT, CT KU B, 08/04/2016, 0:33. FINDINGS: Image quality: Excellent. Lung bases: Lung bases are clear. Heart size is normal. Urinary system: Both kidneys are normal in size. No kidney stones. No hydronephrosis or perinephri c fat stranding. Both ureters appear non-dilated throughout their expected courses. Bladder wall th ickness is normal; no calcified bladder stones. Other solid organs: Liver and spleen are normal in size. 1.5 cm superior right hepatic lobe simple cyst is again noted. Gallbladder wall thickness is normal. Pancreas is normal in contours. No adren al nodules. Peritoneum and bowel: Unenhanced bowel loops demonstrate normal wall thickness and caliber. The evaristo endix is normal in caliber. No free fluid or air. Nodes and vessels: No retroperitoneal or mesenteric adenopathy by size criteria. Aorta and inferior vena cava are normal in caliber. Abdominal wall: No ventral hernias. Pelvis: No free pelvic fluid. No inguinal hernias or adenopathy. Bones: No suspicious bony lesions. No vertebral body compression fractures. IMPRESSION: 1. No kidney stones or hydronephrosis to explain right flank pain. 2. 1.5 cm superior right hepatic lobe simple cyst as before. Dictated by: Minh Jacobs M.D. on 04/14/2017 at 20:44 Approved by: Minh Jacobs M.D. on 04/14/2017 at 20:49
[2017-04-14] MEDS ORDERED: HYDROcodone-APAP 10-325 mg PO ONE (21:25)
[2017-04-14] MEDS ORDERED: METO-301 PO (22:20)
[2017-04-14 23:20] VITALS: BP 108/73; PULSE 64; RESP 16; O2SAT 100
== END 2017-04-14 23:19 | disposition home or self-care (01) ==
LOC: SED 17:18
DX: R31.9 Hematuria, unspecified (principal); R11.2 Nausea with vomiting, unspecified; R10.9 Unspecified abdominal pain; E03.9 Hypothyroidism, unspecified; F17.200 Nicotine dependence, unspecified, uncomplicated; Z90.710 Acquired absence of both cervix and uterus; Z85.43 Personal history of malignant neoplasm of ovary; Z85.41 Personal history of malignant neoplasm of cervix uteri; Z88.5 Allergy status to narcotic agent; Z88.8 Allergy status to other drugs, medicaments and biological substances
CPT/HCPCS: 36415; 74176; 80053; 81000; 81025; 83690; 83735; 85025; 87086; 96361; 96374; 99285; J2765; J7030